=== PATIENT | male | born 1965 | race Caucasian/White ===

== ENCOUNTER 2017-06-18 11:51 | Observation (INO) | payer SELFPAY ==
--- NOTE | 2017-06-18 12:09 | EDPHY ---
H & P Time Seen by Provider: 06/18/17 12:08 HPI/ROS: Chief complaint. Vomiting and diarrhea HPI. 51-year-old male presents with abdominal pain that started this morning. It is associated with vomiting and diarrhea. He thinks possible bad food exposure. He also says that he feels so cold. Pain is described as crampy around his belly button. No radiation. No urinary symptoms. Denies chest pain , shortness of breath, fever. ROS Constitutional. no fever/chills, no weakness Eyes. no problems with vision ENT. no sore throat, no nasal drainage Cardiovascular. no chest pain Respiratory. no shortness of breath, no cough Abdominal. Abdominal pain with vomiting and diarrhea . no problems urinating MS. no calf pain/swelling, no neck/back pain, no joint pain Skin. no rash Lymph. no swollen glands Neuro. no headache, no dizziness, no difficulty walking or with speech Past Medical/Surgical History: Hernia repair Social History: Homeless, daily smoker, no alcohol Smoking Status: Current every day smoker Physical Exam: General Appearance: Alert well-developed male moderate distress vital signs are stable Eyes: Pupils equal and round no pallor or injection. ENT, Mouth: Mucous membranes are moist. Respiratory: There are no retractions, lungs are clear to auscultation. Cardiovascular: Regular rate and rhythm. Gastrointestinal: Abdomen is soft with periumbilical tenderness. No masses. Normal bowel sounds Neurological: Awake and alert, sensory and motor exams grossly normal. Skin: Warm and dry, no rashes. Musculoskeletal: Neck is supple nontender. Extremities symmetrical, full range of motion. Psychiatric: Patient is oriented X 3, there is no agitation. Constitutional: Initial Vital Signs Temperature (C) 36.4 C 06/18/17 12:01 Heart Rate 66 06/18/17 12:01 Respiratory Rate 18 06/18/17 12:01 Blood Pressure 168/80 H 06/18/17 12:01 O2 Sat (%) 100 06/18/17 12:01 O2 Delivery Mode Room Air Allergies/Adverse Reactions: No Known Allergies Allergy (Unverified 06/18/17 12:00) Home Medications: Medication Instructions Recorded NK [No Known Home Meds] 06/18/17 Medical Decision Making - Diagnostics Imaging Results: Imaging Impressions Abdomen CT 06/18/17 12:30 Impression: 1. Mild diffuse jejunal wall thickening, which can be seen with enteritis. 2. Cirrhosis with scattered varices. 3. Additional findings as above. Findings discussed with Dr. Matt Narayan on 06/18/[address] with IV contrast reviewed by me and discussed with Dr. Dunbar suggestive gastroenteritis versus colitis. Procedures: IV normal saline. Morphine for pain. Zofran for nausea ED Course/Re-evaluation: Re-evaluation at 2:30 a.m.. Patient is somewhat better but continues to have vomiting. He and I discussed the imaging and lab results. We discussed treatment plan including recommendation for admission. He expresses understanding and agreement I consulted and discussed case with Dr. Hayes, hospitalist, who agrees to the admission Differential Diagnosis: This is likely and gastroenteritis possibly norovirus or other bacterial etiologies. I considered diverticulitis as well as colitis, electrolyte abnormalities, dehydration - Data Points Laboratory Results: Laboratory Results 06/18/17 13:08 06/18/17 13:08 06/18/17 06/18/17 13:08 13:08 WBC 16.94 10^3/uL H 10^3/uL (3.80-9.50) RBC 5.62 10^6/uL 10^6/uL (4.40-6.38) Hgb 17.1 g/dL g/dL (13.7-17.5) Hct 48.5 % % (40.0-51.0) MCV 86.3 fL fL (81.5-99.8) MCH 30.4 pg pg (27.9-34.1) MCHC 35.3 g/dL g/dL (32.4-36.7) RDW 14.4 % % (11.5-15.2) Plt Count 314 10^3/uL 10^3/uL (150-400) MPV 9.7 fL fL (8.7-11.7) Neut % (Auto) 88.6 % H % (39.3-74.2) Lymph % (Auto) 4.0 % L % (15.0-45.0) [place] % (Auto) 5.9 % % (4.5-13.0) Eos % (Auto) 0.6 % % (0.6-7.6) Baso % (Auto) 0.4 % % (0.3-1.7) Nucleat RBC Rel Count 0.0 % % (0.0-0.2) Absolute Neuts (auto) 15.01 10^3/uL H 10^3/uL (1.70-6.50) Absolute Lymphs (auto) 0.67 10^3/uL L 10^3/uL (1.00-3.00) Absolute Monos (auto) 1.00 10^3/uL H 10^3/uL (0.30-0.80) Absolute Eos (auto) 0.10 10^3/uL 10^3/uL (0.03-0.40) Absolute Basos (auto) 0.07 10^3/uL 10^3/uL (0.02-0.10) Absolute Nucleated RBC 0.00 10^3/uL 10^3/uL (0-0.01) Immature Gran % 0.5 % % (0.0-1.1) Immature Gran # 0.09 10^3/uL 10^3/uL (0.00-0.10) Sodium 141 mEq/L mEq/L (134-144) Potassium 5.5 mEq/L H mEq/L (3.5-5.2) Chloride 105 mEq/L mEq/L (97-110) Carbon Dioxide 21 mEq/l L mEq/l (22-31) Anion Gap 15 mEq/L mEq/L (8-16) BUN 11 mg/dL mg/dL (7-23) Creatinine 0.8 mg/dL mg/dL (0.7-1.3) Estimated GFR > 60 Glucose 120 mg/dL H mg/dL (70-100) Calcium 10.4 mg/dL mg/dL (8.5-10.4) Total Bilirubin 0.7 mg/dL mg/dL (0.1-1.4) Conjugated Bilirubin 0.2 mg/dL mg/dL (0.0-0.5) Unconjugated Bilirubin 0.5 mg/dL mg/dL (0.0-1.1) AST 26 IU/L IU/L (17-59) ALT 29 IU/L IU/L (21-72) Alkaline Phosphatase 118 IU/L IU/L (38-126) Total Protein 8.0 g/dL g/dL (6.3-8.2) Albumin 4.4 g/dL g/dL (3.5-5.0) Lipase 110 IU/L IU/L (23-300) Medications Given: Discontinued Medications Sodium Chloride (Ns) 1,000 mls @ 0 mls/hr IV EDNOW ONE; Wide Open PRN Reason: Protocol Stop: 06/18/17 12:31 Last Admin: 06/18/17 13:02 Dose: 1,000 mls Morphine Sulfate (Morphine) 6 mg IVP EDNOW ONE Stop: 06/18/17 12:31 Last Admin: 06/18/17 13:03 Dose: 6 mg Ondansetron HCl (Zofran) 4 mg IVP EDNOW ONE Stop: 06/18/17 12:31 Last Admin: 06/18/17 13:03 Dose: 4 mg Departure - Departure Disposition: [facility] Inpatient Acute Clinical Impression: Acute gastroenteritis Condition: Fair Referrals: Patient,NotPresent [Unknown] - As per Instructions
[2017-06-18] MEDS ORDERED: ONDANSETRON 4 MG/2 ML VIAL IVP ONE (12:30)
[2017-06-18] MEDS ORDERED: NS 1,000 ML IV ONE (12:30)
[2017-06-18 13:18] LABS: % IMMATURE GRANULYOCYTES 0.5 % (0.0-1.1); ABSOLUTE IMMATURE GRANULOCYTES 0.09 10^3/uL (0.00-0.10); ADD DIFF? NO; ADD MORPH? NO; ADD SCAN? NO; ATYPICAL LYMPHOCYTE FLAG 0 (0-99); FRAGMENT RBC FLAG 0 (0-99); HEMATOCRIT 48.5 % (40.0-51.0); HEMOGLOBIN 17.1 g/dL (13.7-17.5); LEFT SHIFT FLG 10 (0-99); LIPEMIA HEMOLYSIS FLAG 90 (0-99); MEAN CELL HEMOGLOBIN 30.4 pg (27.9-34.1); MEAN CELL HEMOGLOBIN CONCENTR. 35.3 g/dL (32.4-36.7); MEAN CELL VOLUME 86.3 fL (81.5-99.8); MEAN PLATELET VOLUME 9.7 fL (8.7-11.7); PLATELET CLUMPS FLAG 20 (0-99); PLATELET COUNT 314 10^3/uL (150-400); RED BLOOD CELL COUNT 5.62 10^6/uL (4.40-6.38); RED CELL DISTRIBUTION WIDTH 14.4 % (11.5-15.2)
[2017-06-18 13:34] LABS: ALANINE AMINOTRANSFERASE 29 IU/L (21-72); ALBUMIN 4.4 g/dL (3.5-5.0); ALKALINE PHOSPHATASE 118 IU/L (38-126); ANION GAP 15 mEq/L (8-16); ASPARTATE AMINOTRANSFERASE 26 IU/L (17-59); BILIRUBIN,TOTAL 0.7 mg/dL (0.1-1.4); BILIRUBIN-CONJUGATED 0.2 mg/dL (0.0-0.5); BILIRUBIN-UNCONJUGATED 0.5 mg/dL (0.0-1.1); CALCIUM 10.4 mg/dL (8.5-10.4); CARBON DIOXIDE 21 mEq/l (22-31); CHLORIDE 105 mEq/L (97-110); CREATININE 0.8 mg/dL (0.7-1.3); GLOMERULAR FILTRATION RATE > 60; GLUCOSE 120 mg/dL (70-100); POTASSIUM 5.5 mEq/L (3.5-5.2); SODIUM 141 mEq/L (134-144)
[2017-06-18] MEDS ORDERED: IOPAMIDOL (ISOVUE-300) 100 ML BTL ONE (13:38)
[2017-06-18 16:40] VITALS: BP 117/85; PULSE 83; RESP 18; TEMP 98.2; O2SAT 95
== END 2017-06-18 18:08 | disposition left against medical advice (07) ==
LOC: F1N 16:33
PROVIDERS: ADMIT Student in an Organized Health Care Education/Training Program; ATTEND Student in an Organized Health Care Education/Training Program
DX: K52.9 Noninfective gastroenteritis and colitis, unspecified (principal); Z59.0 Homelessness
CPT/HCPCS: 96374; G0378; J2405; Q9967

== ENCOUNTER 2017-09-19 18:00 | Emergency (ER) | payer SELFPAY ==
[2017-09-19 18:05] VITALS: BP 102/63; PULSE 84; RESP 18; TEMP 98.2; O2SAT 97
--- NOTE | 2017-09-19 18:44 | EDPHY ---
H & P Smoking Status: Current every day smoker Time Seen by Provider: 09/19/17 18:15 HPI/ROS: CHIEF COMPLAINT: Pruritic rash HISTORY OF PRESENT ILLNESS: 52-year-old homeless male presents to the emergency department with a pruritic rash. The patient states that he has had an ongoing itchy rash for at least 1 month or more. He states that he itches his skin to the point where he developed an open wound and then it stops itching. No treatment. He denies pain in his chest or difficulty breathing. He does describe a burning sensation associated with the rash as well. ROS: Denies fevers, chills, redness. (Inessa Harris) Past Medical/Surgical History: Hernia repair (Inessa Harris) Social History: Homeless (Inessa Harris) Physical Exam: On examination the patient has diffuse macular papular erythematous rash with multiple areas of excoriated wounds diffusely to in his entire body. There is no other surrounding redness or signs of cellulitis or acute infection. (Inessa Harris) Constitutional: Initial Vital Signs Temperature (C) 36.8 C 09/19/17 18:02 Heart Rate 84 09/19/17 18:02 Respiratory Rate 18 09/19/17 18:02 Blood Pressure 102/63 09/19/17 18:02 O2 Sat (%) 97 09/19/17 18:02 O2 Delivery Mode Room Air Allergies/Adverse Reactions: No Known Allergies Allergy (Verified 09/19/17 18:01) Home Medications: Medication Instructions Recorded Permethrin 5% [Elimite 5%] 60 gr TOP DAILY #1 gm 09/19/17 MDM/Departure - MDM Medications Given: Discontinued Medications Diphenhydramine HCl (Benadryl) 50 mg PO EDNOW ONE Stop: 09/19/17 18:59 Last Admin: 09/19/17 19:02 Dose: 50 mg Permethrin (Elimite 5%) 1 alexandra TP EDNOW ONE Stop: 09/19/17 18:46 Last Admin: 09/19/17 19:02 Dose: 1 alexandra ED Course/Re-evaluation: The case was discussed with Dr. Case Washburn, secondary supervising physician, who also evaluated the patient. I do not think oral antibiotics or topical antibiotics are indicated. I explained to the patient that I clinically think that he has scabies. He will be treated with topical permethrin cream. The patient was offered shower for decontamination, however he refused. He was placed in paper scrubs. He understands that he should not itch the area. He was given a dose of Benadryl for the itching. (Inessa Harris) I did evaluate this patient independently as well. I agree with the diagnosis and plan. He has excoriated scabs and wounds throughout his body anywhere that he can reach. Not in the middle of his back. (Case Washburn) - Depart Disposition: Home, Routine, Self-Care Clinical Impression: Scabies Condition: Good Instructions: Scabies (ED) Additional Instructions: You should wash year clothes in hot water and dry them in a very hot drier operator. Apply permethrin cream head to toe and leave on overnight and then wash off after 8-14 hr. Benadryl 50 mg every 6-8 hours as needed for symptoms of itching, caution this medication will make you drowsy. Prescriptions: Permethrin 5% [Elimite 5%] 60 gr TOP DAILY #1 gm Referrals: [facility],. [Clinic] - As per Instructions
[2017-09-19] MEDS ORDERED: PERMETHRIN 5% 60 GM CREAM TP ONE (18:45)
[2017-09-19] MEDS ORDERED: diphenhydrAMINE 25 MG CAP PO ONE (18:58)
== END 2017-09-19 19:54 | disposition home or self-care (01) ==
DX: B86 Scabies (principal); F17.200 Nicotine dependence, unspecified, uncomplicated

== ENCOUNTER 2018-12-03 20:23 | Emergency (ER) | payer OTHER | END 2018-12-03 21:24 | disposition home or self-care (01) ==